=== PATIENT | male | born 1975 | race Caucasian/White ===

== ENCOUNTER → 2017-06-04 | Outpatient (CLI) | payer SELFPAY ==
[~2017-06-04] MED LIST: CIPR500T2 PO; CLEO300C2 PO; NEUR300C PO; TYLE3 PO; ULTR50TA5 PO; ZOFR4TAB3 SL
--- NOTE | 2017-06-06 14:11 | RADRPT ---
EXAM DATE/TIME: 06/04/2017 15:52 [facility] COMPARISON : No previous studies available for comparison. INDICATIONS : Evaluate for possible renal cryo-ablation HISTORY OF PRESENT ILLNESS: 42-year-old male who is Kinyarwanda-speaking only. He has a small complex cystic lesion involving the low er pole the right kidney which is undergone imaging evaluation. This measures 1.5 x 1.3 x 1.2 cm and is largely cystic. There is a 2 mm enhancing nodule involving the inferior margin of this lesion. Pat ient is referred by Dr. Gould of [facility]. IMAGING STUDIES: MRI of the abdomen from [facility] April 30, 2017 ASSESSMENT: 15 x 13 x 12 mm complex cystic lesion involving the lower pole of the right kidney. There is a 2 mm e nhancing nodule involving the inferior margin of this. This is a difficult lesion. A biopsy of this l esion will likely be nondiagnostic as the likelihood of gaining tissue sample from the tiny soft tiss ue nodular component is highly unlikely. This lesion is worrisome from a imaging standpoint. I feel t he best avenue of approach is for cryoablation therapy. This should be performed regardless of the bi opsy results secondary to the above-mentioned factor. PLAN: Biopsy and cryoablation of the right lower pole renal lesion. TIME SPENT: 20 minutes Km Portillo Jr., MD on June 06, 2017 at 13:38 Board Certified Radiologist. This report was verified electronically.
== END ==
LOC: HRAD 15:49
PROVIDERS: ATTEND Urology
DX: N28.9 Disorder of kidney and ureter, unspecified (principal)

== ENCOUNTER 2017-06-08 08:07 | Emergency (ER) | payer MEDICAID ==
[~2017-06-08] VITALS: Ht 172.7 cm; Wt 90.0 kg
[~2017-06-08 08:07] MED LIST changes: -NEUR300C PO; -ULTR50TA5 PO; -ZOFR4TAB3 SL
[2017-06-08 08:10] VITALS: BP 146/98; PULSE 87; RESP 16; TEMP 98.4; O2SAT 99
--- NOTE | 2017-06-08 08:25 | PD ---
HPI Chief Complaint: Flank/Kidney Pain Time Seen by Provider: 08:24 Travel History International Travel<30 days: No Contact w/Intl Traveler<30days: No Traveled to known affect area: No History of Present Illness HPI LAST 3 DAYS INTERMITTENT, SHARP, LEFT FLANK PAIN, 8/10, NO ALLEVIATING/ AGGRAVATING FACTORS...ASSOC WITH NAUSEA PFSH Past Medical History Cancer: No Cardiovascular Problems: No Endocrine: No Genitourinary: No Immune Disorder: No Musculoskeletal: No Neurologic: No Psychiatric: No Reproductive: No Respiratory: No Past Surgical History Surgical History: No Previous Surgery Other Surgery: Yes (LEFT INDEX FINGER) Social History Alcohol Use: Yes (1-2 BEERS A DAY) Tobacco Use: No Substance Use: No Allergies-Medications (Allergen,Severity, Reaction): Coded Allergies: No Known Allergies (Verified , 06/08/17) Reported Meds & Prescriptions Reported Meds & Active Scripts Active Neurontin (Gabapentin) 300 Mg Cap 300 Mg PO BID Zofran Odt (Ondansetron Odt) 4 Mg Tab 4 Mg SL Q6HR PRN Ultram (Tramadol HCl) 50 Mg Tab 50 Mg PO Q4H PRN Review of Systems Except as stated in HPI: all other systems reviewed are Neg Genitourinary: Positive: Flank Pain Physical Exam Narrative GENERAL: SKIN: Warm and dry. HEAD: Atraumatic. Normocephalic. EYES: Pupils equal and round. No scleral icterus. No injection or drainage. ENT: No nasal bleeding or discharge. Mucous membranes pink and moist. NECK: Trachea midline. No JVD. CARDIOVASCULAR: Regular rate and rhythm. RESPIRATORY: No accessory muscle use. Clear to auscultation. Breath sounds equal bilaterally. GASTROINTESTINAL: Abdomen soft, non-tender, nondistended. Hepatic and splenic margins not palpable. MUSCULOSKELETAL: Extremities without clubbing, cyanosis, or edema. No obvious deformities. NEUROLOGICAL: Awake and alert. No obvious cranial nerve deficits. Motor grossly within normal limits. Five out of 5 muscle strength in the arms and legs. Normal speech. PSYCHIATRIC: Appropriate mood and affect; insight and judgment normal. Data Data Last Documented VS Vital Signs Date Time Temp Pulse Resp B/P Pulse Ox O2 Delivery O2 Flow Rate FiO2 06/08/17 11:15 97.8 68 17 124/78 99 06/08/17 09:30 Room Air Orders Complete Blood Count With Diff (06/08/17 08:26) Comprehensive Metabolic Panel (06/08/17 08:26) Urinalysis - C+S If Indicated (06/08/17 08:26) Ct Abd/Pel W/O Iv Contrast (06/08/17 08:26) Ecg Monitoring (06/08/17 08:26) Iv Access Insert/Monitor (06/08/17 08:26) Ketorolac Inj (Toradol Inj) (06/08/17 08:30) Morphine Inj (Morphine Inj) (06/08/17 08:30) Ondansetron Inj (Zofran Inj) (06/08/17 08:30) Sodium Chloride 0.9% Flush (Ns Flush) (06/08/17 08:30) Sodium Chlor 0.9% 1000 Ml Inj (Ns 1000 M (06/08/17 08:30) Labs Laboratory Tests Test 06/08/17 06/08/17 08:30 10:20 White Blood Count 8.6 TH/MM3 Red Blood Count 5.52 MIL/MM3 Hemoglobin 17.2 GM/DL Hematocrit 50.0 % Mean Corpuscular Volume 90.5 FL Mean Corpuscular Hemoglobin 31.0 PG Mean Corpuscular Hemoglobin 34.3 % Concent Red Cell Distribution Width 13.3 % Platelet Count 217 TH/MM3 Mean Platelet Volume 9.8 FL Neutrophils (%) (Auto) 65.8 % Lymphocytes (%) (Auto) 23.9 % Monocytes (%) (Auto) 6.2 % Eosinophils (%) (Auto) 3.7 % Basophils (%) (Auto) 0.4 % Neutrophils # (Auto) 5.6 TH/MM3 Lymphocytes # (Auto) 2.0 TH/MM3 Monocytes # (Auto) 0.5 TH/MM3 Eosinophils # (Auto) 0.3 TH/MM3 Basophils # (Auto) 0.0 TH/MM3 CBC Comment DIFF FINAL Differential Comment Sodium Level 139 MEQ/L Potassium Level 3.6 MEQ/L Chloride Level 106 MEQ/L Carbon Dioxide Level 26.6 MEQ/L Anion Gap 6 MEQ/L Blood Urea Nitrogen 10 MG/DL Creatinine 0.80 MG/DL Estimat Glomerular Filtration 107 ML/MIN Rate Random Glucose 110 MG/DL Calcium Level 8.2 MG/DL Total Bilirubin 0.5 MG/DL Aspartate Amino Transf 40 U/L (AST/SGOT) Alanine Aminotransferase 79 U/L (ALT/SGPT) Alkaline Phosphatase 79 U/L Total Protein 7.8 GM/DL Albumin 4.1 GM/DL Urine Color YELLOW Urine Turbidity CLEAR Urine pH 6.0 Urine Specific [place] 1.021 Urine Protein NEG mg/dL Urine Glucose (UA) NEG mg/dL Urine Ketones NEG mg/dL Urine Occult Blood NEG Urine Nitrite NEG Urine Bilirubin NEG Urine Urobilinogen LESS THAN 2.0 MG/DL Urine Leukocyte Esterase NEG Urine RBC LESS THAN 1 /hpf Urine WBC 1 /hpf Microscopic Urinalysis Comment CULT NOT INDICATED MDM Medical Decision Making Medical Screen Exam Complete: Yes Emergency Medical Condition: Yes Medical Record Reviewed: Yes Differential Diagnosis UTI V URETEROLITHIASIS V PYELO V SPLEEN Narrative Course patient found to have no uti on ua, nl kidney function, mildly elev lft's which may be due to calcification noted on ct...no ct e/o pyelo, spleen injury or kidney stones, also no divertic Diagnosis Primary Impression: LEFT FLANK PAIN NOS Patient Instructions: Flank Pain (ED), General Instructions Scripts Gabapentin (Neurontin)300 Mg [id number] Mg PO BID #30 CAP Ref 0 Prov:Arben Aguirre MD 06/08/17 Ondansetron Odt (Zofran Odt)4 Mg Tab4 Mg SL Q6HR PRN (Nausea/Vomiting) #12 TAB Prov:Arben Aguirre MD 06/08/17 Tramadol (Ultram)50 Mg Tab50 Mg PO Q4H PRN (PAIN) #28 TAB Prov:rAben Aguirre MD 06/08/17 Disposition: 01 DISCHARGE HOME Condition: Stable Arben Aguirre MD Jun 08, 2017 08:25
[2017-06-08] MEDS ORDERED: ONDANSETRON HCL 4 MG/2 ML VIAL IVP ONE (08:30)
[2017-06-08] MEDS ORDERED: SODIUM CHLORIDE 0.9% FLUSH 10 ML FLUSH IVF PRN (08:30)
[2017-06-08] MEDS ORDERED: MORPHINE SULFATE 4 MG/ML INJ IV ONE (08:30)
[2017-06-08] MEDS ORDERED: KETOROLAC TROMETHAMINE 30 MG/ML (IVP) VIAL IVP ONE (08:30)
[2017-06-08] MEDS ORDERED: SODIUM CHLOR 0.9% 1000 ML INJ 1,000 ML IV ONE (08:30)
[2017-06-08 08:46] LABS: AUTOMATED NEUTROPHIL # 5.6 TH/MM3 (1.8-7.7); BASOPHIL % 0.4 % (0.0-2.0); EOSINOPHIL # 0.3 TH/MM3 (0-0.4); EOSINOPHIL % 3.7 % (0.0-4.0); HEMO FLAGS DIFF FINAL; LYMPH % 23.9 % (9.0-44.0); MEAN CELL VOLUME 90.5 FL (80.0-100.0); MEAN CORPUSCULAR HGB CONC 34.3 % (32.0-36.0); MONO % 6.2 % (0.0-8.0); NEUT % 65.8 % (16.0-70.0); PLATELET COUNT 217 TH/MM3 (150-450); RED BLOOD COUNT 5.52 MIL/MM3 (4.50-5.90); RED CELL DISTRIBUTION WIDTH 13.3 % (11.6-17.2); WHITE BLOOD COUNT 8.6 TH/MM3 (4.0-11.0)
[2017-06-08 09:02] LABS: ANION GAP 6 MEQ/L (5-15); AST (GOT) 40 U/L (15-37); BICARBONATE 26.6 MEQ/L (21.0-32.0); BLOOD UREA NITROGEN 10 MG/DL (7-18); CHLORIDE 106 MEQ/L (98-107); GLOMERULAR FILTRATION RATE 107 ML/MIN (>89); POTASSIUM 3.6 MEQ/L (3.5-5.1); SODIUM (NA) 139 MEQ/L (136-145)
[2017-06-08 09:03] LABS: ALT (GPT) 79 U/L (12-78)
[2017-06-08 09:05] LABS: ALKALINE PHOSPHATASE 79 U/L (45-117); TOTAL BILIRUBIN ADULT 0.5 MG/DL (0.2-1.0)
[2017-06-08 09:30] VITALS: BP 131/82; PULSE 76; RESP 17; TEMP 97.9; O2SAT 99
[2017-06-08 09:33] VITALS: RESP 17
--- NOTE | 2017-06-08 10:13 | RADRPT ---
EXAM DATE/TIME: 06/08/2017 09:49 [facility] COMPARISON: No previous studies available for comparison. INDICATIONS : Left flank pain for 3 days along with nausea,evaluate for renal stone. ORAL CONTRAST: No oral contrast ingested. RADIATION DOSE: 8.47 CTDIvol (mGy) MEDICAL HISTORY : Left renal cyst SURGICAL HISTORY : None. ENCOUNTER: Initial ACUITY: 3 days PAIN SCALE: 8/10 LOCATION: Left flank TECHNIQUE: Volumetric scanning of the abdomen and pelvis was performed. Using automated exposure control and ad justment of the mA and/or kV according to patient size, radiation dose was kept as low as reasonably achievable to obtain optimal diagnostic quality images. DICOM format image data is available electro nically for review and comparison. FINDINGS: LOWER LUNGS: The visualized lower lungs are clear. LIVER: Fatty replacement is is present calcifications medial right lobe. SPLEEN: Normal size without lesion. PANCREAS: Within normal limits. KIDNEYS: Normal in size and shape. There is no mass, stone, or hydronephrosis. ADRENAL GLANDS: Within normal limits. VASCULAR: There is no aortic aneurysm. Scattered intra-abdominal calcifications are evident. BOWEL/MESENTERY: The stomach, small bowel, and colon demonstrate no acute abnormality. There is no free intraperitone al air or fluid. ABDOMINAL WALL: Within normal limits. RETROPERITONEUM: There is no lymphadenopathy. BLADDER: No wall thickening or mass. REPRODUCTIVE: Within normal limits. INGUINAL: There is no lymphadenopathy or hernia. MUSCULOSKELETAL: Within normal limits for patient age. CONCLUSION: Negative for renal stone or obstruction. Scattered intra-abdominal vascular calcifications. Scatter ed calcifications right lobe of the liver. I have no prior studies for comparison.. Sixto Verdin MD FACR on June 08, 2017 at 10:09 Board Certified Radiologist. This report was verified electronically.
[2017-06-08 11:00] LABS: BLOOD, URINE NEG (NEG); GLUCOSE,URINE NEG (NEG); KETONE, URINE NEG (NEG); NITRITE,URINE NEG (NEG); URINE COLOR YELLOW (YELLW/STRAW)
[2017-06-08 11:02] LABS: COMMENT (UR) CULT NOT INDICATED; CULTURE IF INDICATED CULT NOT INDICATED
[2017-06-08] MEDS ORDERED: ZOFR4TAB3 SL (11:11)
[2017-06-08] MEDS ORDERED: ULTR50TA5 PO (11:11)
[2017-06-08 11:15] VITALS: BP 124/78; TEMP 97.8
[2017-06-08] MEDS ORDERED: NEUR300C PO (11:20)
== END 2017-06-08 11:14 | disposition home or self-care (01) ==
LOC: NEPE 08:07
DX: R10.9 Unspecified abdominal pain (principal)
CPT/HCPCS: 74176; 80053; 81001; 85025; 96361; 96374; 96375; 99285; J1885; J2270; J2405; J7030

== ENCOUNTER 2017-06-21 07:22 | Day surgery (SDC) | payer MEDICAID ==
[~2017-06-21] VITALS: Ht 167.6 cm; Wt 85.9 kg
[~2017-06-21 07:22] MED LIST changes: -CIPR500T2 PO; -CLEO300C2 PO; +NEUR300C PO; -TYLE3 PO; +ULTR50TA5 PO; +ZOFR4TAB3 SL
[2017-06-21 07:44] VITALS: BP 126/90; PULSE 72; RESP 20; TEMP 98.3; O2SAT 98
[2017-06-21] MEDS ORDERED: ceFAZolin 2 GM PREMIX 50 ML IV SCH (08:00)
[2017-06-21] MEDS ORDERED: SODIUM CHLOR 0.9% 1000 ML INJ 1,000 ML IV SCH (08:00)
[2017-06-21] MEDS ORDERED: SODIUM CHLORID 0.9% 500 ML IV PRN (08:00)
[2017-06-21] MEDS ORDERED: LACTATED RINGER'S 1000 ML IV PRN (08:00)
[2017-06-21 08:22] LABS: APTT (PATIENT) 29.2 SEC (24.3-30.1); PROTHROMBIN TIME - PATIENT 10.8 SEC (9.8-11.6)
[2017-06-21] MEDS ORDERED: PROPOFOL 200 MG/20 ML AMP IV ONE (09:03)
[2017-06-21] MEDS ORDERED: LIDOCAINE HCL 1% 20 ML VIAL ONE (11:07)
[2017-06-21] MEDS ORDERED: DO NOT ADM ANY ANTICOAGULANT DRUGS PRN (13:18)
[2017-06-21] MEDS ORDERED: fentaNYL CITRATE 250 MCG/5 ML AMP ONE (13:27)
[2017-06-21] MEDS ORDERED: *morphine SULFATE 8 MG/ML PERIprocedure ONLY ONE (13:48)
--- NOTE | 2017-06-21 13:50 | PD.RAD ---
Post CT Procedure Prog Note Pre Procedure Diagnosis: (1) Renal mass, right Post Procedure Diagnosis: (1) Renal mass, right Procedure Date: Jun 21, 2017 Supervising Radiologist: Km Portillo JR Anesthesia: General Plan of Activity Patient to Unit: PACU Patient Condition: Good Additional Comments: Right lower pole renal mass less than 2cm in size. Cyoablation probe placed without difficulty. Could not do biopsy secondary to obscuration by the probe. Successful cryoablation. No complications seen of post CT. Pt to f/u with IR in 1 week or sooner if any problems. F/U with Dr Gould as previously scheduled for f/u CT or MRI. This was explained to the patient and family concerning this. See PACS Report for procedural detail/treatment Jr. Bandar,Km Dobson MD Jun 21, 2017 13:50
[2017-06-21 14:15] VITALS: BP 140/92; PULSE 61; RESP 18; TEMP 98; O2SAT 93
[2017-06-21 14:45] VITALS: BP 145/98; PULSE 60; RESP 18; O2SAT 93
[2017-06-21] MEDS ORDERED: oxyCODONE/ACETAMINOPHEN 5 MG/325 MG TAB PO PRN (15:00)
[2017-06-21 15:15] VITALS: BP 149/83; PULSE 61; RESP 20; O2SAT 95
[2017-06-21 15:45] VITALS: BP 142/87; PULSE 64; RESP 18; O2SAT 97
--- NOTE | 2017-06-21 16:11 | RADRPT ---
EXAM DATE/TIME: 06/21/2017 11:47 INDICATIONS : Right renal mass. Anesthesia and pain control was provided by the Anesthesia department. DEVICE(S): 1.) Cryoablation probe MEDICAL HISTORY : Right renal mass. SURGICAL HISTORY : None. ENCOUNTER: Initial ACUITY: 1 day PAIN SCORE: 0/10 LOCATION: Right flank PROCEDURE : 1. CT guided cryoablation. Under sterile conditions and using aseptic technique with CT guidance the right lower pole renal mass was localized and satisfactory approach was taken to access the lesion. Using automated exposure co ntrol and adjustment of the mA and/or kV according to patient size, radiation dose was kept as low as reasonably achievable to obtain optimal diagnostic quality images. DICOM format image data is avail able electronically for review and comparison. [employer] Cryoprobes were employed using percutaneous technique employing the prescribed probe. A freeze-thaw, freeze-thaw technique was employed and serial imaging demonstrated an ice ball encompa ssing the entire lesion. The needle was adjusted slightly more lateral and a second freeze thaw cycle performed to make sure the entire lesion was treated. A small amount of perinephric hemorrhage noted . This was stable throughout the process. Post procedure images demonstrate expected postoperative ch anges without evidence of hematoma. CONCLUSION: No biopsy was performed as the lesion was obscured by the cryoablation probe. There is a high likelih ood the biopsy would be nondiagnostic given the tiny size of the enhancing nodule. Uncomplicated cryo ablation as above. The patient has followup with Dr. Gould. Km Portillo Jr., MD on June 21, 2017 at 16:05 Board Certified Radiologist. This report was verified electronically.
[2017-06-21 16:45] VITALS: BP 143/88; PULSE 77; RESP 18; O2SAT 95
== END 2017-06-21 16:58 | disposition home or self-care (01) ==
LOC: HRAD 07:22 → HRIP 07:23 → HRAD 16:58
PROVIDERS: ATTEND Urology
DX: D30.00 Benign neoplasm of unspecified kidney (principal)
CPT/HCPCS: 50593; 77013; 85610; 85730; C2618; J0690; J2270; J3010; J7030

== ENCOUNTER 2017-06-28 13:28 | Day surgery (SDC) | payer SELFPAY ==
[2017-06-28 13:47] VITALS: BP 140/87; PULSE 80; RESP 20; TEMP 98.7; O2SAT 98
[2017-06-28] MEDS ORDERED: TYLE325T PO (13:59)
--- NOTE | 2017-06-28 14:50 | RADRPT ---
EXAM DATE/TIME: 06/28/2017 13:45 [facility] COMPARISON : No previous studies available for comparison. INDICATIONS : F/U RENAL CRYOABLATION OBJECTIVE: Temperature: 98.7 Heart Rate: 80 Blood Pressure: 140/87 Respiratory: 20 Oximetry: 98 PNEUMONIA VACCINE: NO HISTORY OF PRESENT ILLNESS: 42-year-old gentleman status post cryoablation of a right renal lesion. Biopsy of the lesion was not performed as the area of concern which was an enhancing nodule within a cystic lesion measured approx imately 2 mm in size which is too small to target for biopsy. The cryoablation was successful. The pa jeny reports some pain involving the right lower quadrant anteriorly. He points to the area of the T 12 dermatome anteriorly. He states the pain as 5/10 and has been unchanged since onset which began im mediately following the procedure. He denies any other problems. PAST MEDICAL HISTORY : 1. RENAL MASS PAST SURGICAL HISTORY : 1. RENAL CRYOABLATION SOCIAL HISTORY : ALLERGIES: 1. NKDA MEDICATIONS: 1. Tylenol 650 mg prn PHYSICAL EXAMINATION: General: Awake and alert. In no acute distress. Abdomen: Nondistended. Nontender. Access: Healing nicely. No erythema or ecchymosis. ASSESSMENT: Patient doing well status post cryoablation of a right renal lesion. The lesion could not be biopsied as detailed above. The patient is experiencing some discomfort along the T12 dermatome likely relate d to irritation of the T12 nerve from the probe. This should improve with time. The patient asked for pain medication and he was given a prescription for Percocet 5/325. 20 were given. No refills. PLAN: The patient was instructed to followup with his urologist for followup imaging. I explained to him th e importance of this. He stated he would. Return as needed. TIME SPENT: 15 mins Km Portillo Jr., MD on June 28, 2017 at 14:42 Board Certified Radiologist. This report was verified electronically.
== END 2017-06-28 14:07 | disposition home or self-care (01) ==
LOC: HROP 13:28 → HRIP 13:31 → HROP 14:07
PROVIDERS: ATTEND Radiology Body Imaging
DX: N28.89 Other specified disorders of kidney and ureter (principal)